=== PATIENT | female | born 1995 | race Caucasian/White ===

== ENCOUNTER 2016-04-05 14:12 | Emergency (ER) | payer OTHER ==
[2016-04-05 14:29] VITALS: BP 108/75; PULSE 80; TEMP 98; BMI 29.9
[2016-04-05 15:19] LABS: URINE APPEARANCE SLCLOUDY; URINE BILIRUBIN NEGATIVE (NEGATIVE); URINE COLOR LTYELLOW; URINE GLUCOSE (UA) NEGATIVE (NEGATIVE); URINE KETONE NEGATIVE (NEGATIVE); URINE NITRITE NEGATIVE (NEGATIVE); URINE PROTEIN NEGATIVE (NEGATIVE); URINE UROBILINOGEN NEGATIVE E.U./dl (0.2-1.0)
[2016-04-05 15:37] LABS: URINE BLOOD 1+ (NEGATIVE)
[2016-04-05 15:38] LABS: URINE LEUK ESTERASE 3+ (NEGATIVE)
--- NOTE | 2016-04-05 15:45 | PDOC ---
History of Present Illness - General Chief Complaint: Urinary Problem Stated Complaint: LOWER PELVIC PAIN/ TROUBLING URINATING Time Seen by Provider: 04/05/16 14:57 History Source: Patient Exam Limitations: No Limitations - History of Present Illness Initial Comments: 04/05/16 15:43 Chief complaint: Dysuria today with pelvic comfort History of present illness: Patient is a 20-year-old female here today complaining of dysuria that started earlier today with suprapubic discomfort. Patient denies any vaginal discharge or any frequency urgency or hematuria or back pain, fever, or vomiting. Patient reports that she be should be getting her menstrual cycle any day now ever it has been irregular since she had started to menstruate. Patient reports that she was sexually active yesterday for the very first time in a condom was used however the condom came off at the end. Patient works that it was her boyfriend's first time also. 04/05/16 16:13 04/05/16 16:21 Timing/Duration: getting worse Severity: mild Associated Symptoms: reports: other (dyuria today, suprapubic tenderness today ) . denies: fever/chills, nausea/vomiting Past History - Past Medical History Allergies/Adverse Reactions: Allergies Allergy/AdvReac Type Severity Reaction Status Date / Time No Known Allergies Allergy Verified 04/05/16 14:29 Home Medications: Ambulatory Orders No Home Medications 0 dose .ROUTE UTDICT 09/03/13 Nitrofurantoin Monohyd/M-Cryst [Macrobid -] 100 mg PO BID #13 capsule 04/05/16 Phenazopyridine HCl [Pyridium] 200 mg PO TID #5 tablet 04/05/16 Thyroid Disease: No - Immunization History Immunization Up to Date: Yes - Psycho/Social/Smoking Cessation Hx Anxiety: No Suicidal Ideation: No Smoking History: Never smoked Hx Alcohol Use: Yes (SOCIAL) Drug/Substance Use Hx: No Substance Use Type: None Review of Systems - Review of Systems Able to Perform ROS?: Yes Constitutional: No: Symptoms Reported HEENTM: No: Symptoms Reported Respiratory: No: Symptoms reported Cardiac (ROS): No: Symptoms Reported ABD/GI: No: Diarrhea, Nausea : Yes: Dysuria. No: Burning, Discharge, Frequency, Flank Pain, Hematuria, Incontinence, Pain, Urgency Musculoskeletal: No: Symptoms Reported Integumentary: No: Symptoms Reported Neurological: No: Symptoms reported *Physical Exam - Vital Signs Last Vital Signs Temp Pulse Resp BP Pulse Ox 98.0 F 80 20 108/75 99 04/05/16 14:26 04/05/16 14:26 04/05/16 14:26 04/05/16 14:26 04/05/16 14:26 - Physical Exam General Appearance: Yes: Appropriately Dressed Respiratory/Chest: positive: Lungs Clear, Normal Breath Sounds. negative: Chest Tender, Respiratory Distress Cardiovascular: positive: Regular Rhythm, Regular Rate, S1, S2 Gastrointestinal/Abdominal: positive: Normal Bowel Sounds, Soft. negative: Tender, Organomegaly, Distended, Guarding, Rebound, Tenderness, Hepatomegaly, Spleenomegaly Musculoskeletal: positive: Normal Inspection. negative: CVA Tenderness, CVA Tenderness (R), CVA Tenderness (L) Integumentary: positive: Normal Color Neurologic: positive: Alert, Normal Response, Responsive ED Treatment Course - ADDITIONAL ORDERS Additional order review: Laboratory Results 04/05/16 04/05/16 15:00 14:57 Urine Color Ltyellow Urine Appearance Slcloudy Urine pH 5.0 Ur Specific Ira 1.025 Urine Protein Negative Urine Glucose (UA) Negative Urine Ketones Negative Urine Blood 1+ H Urine Nitrite Negative Urine Bilirubin Negative Urine Urobilinogen Negative Ur Leukocyte Esterase 3+ H D Urine HCG, Qual Negative Medical Decision Making - Medical Decision Making 04/05/16 15:45 Patient is a 20-year-old female here today complaining of dysuria that started earlier today with suprapubic discomfort. Patient denies any vaginal discharge or any frequency urgency or hematuria or back pain, fever, or vomiting. Patient reports that she be should be getting her menstrual cycle any day now ever it has been irregular since she had started to menstruate. Patient reports that she was sexually active yesterday for the very first time in a condom was used however the condom came off at the end. Patient works that it was her boyfriend' s first time also. 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 04/05/16 16:13 Rule out urinary tract infection 04/05/16 16:14 Plan: Urinalysis Urine C&S Urine chlamydia and gonorrhea amplification 04/05/16 16:16 Macrobid 100 mg by mouth now then twice a day 7 days Pyridium 200 mg by mouth now then 3 times a day 2 days 04/05/16 16:17 Laboratory Tests 04/05/16 04/05/16 14:57 15:00 Urine Color Ltyellow Urine Appearance Slcloudy Urine pH 5.0 Ur Specific Ira 1.025 Urine Protein Negative Urine Glucose (UA) Negative Urine Ketones Negative Urine Blood 1+ H Urine Nitrite Negative Urine Bilirubin Negative Ur Leukocyte Esterase 3+ H D Urine HCG, Qual Negative *DC/Admit/Observation/Transfer Diagnosis at time of Disposition: Urinary tract infection Qualifiers: Urinary tract infection type: acute cystitis Hematuria presence: with hematuria Qualified Code(s): N30.01 - Acute cystitis with hematuria - Discharge Dispostion Disposition: HOME Condition at time of disposition: Stable - Prescriptions Prescriptions: Nitrofurantoin Monohyd/M-Cryst [Macrobid -] 100 mg PO BID #13 capsule Phenazopyridine HCl [Pyridium] 200 mg PO TID #5 tablet - Referrals Referrals: Arun Friend MD [Primary Care Provider] - - Patient Instructions Additional Instructions: dRINK A lot a fluids especially cranberry juice Return to emergency room if any fever, nausea, or back pain or increased pelvic pain 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
[2016-04-05] MEDS ORDERED: PHENAZOPYRIDINE HCL 100 MG TABLET (FP) PO ONE (16:18)
[2016-04-05] MEDS ORDERED: NITROFURANTOIN MACROCRYSTAL 50 MG CAPSULE (FP) ONE (16:20)
[2016-04-05] MEDS ORDERED: PHENAZOPYRIDINE HCL 100 MG TABLET (FP) ONE (16:20)
[2016-04-05] MEDS ORDERED: NITROFURANTOIN MACROCRYSTAL 50 MG CAPSULE (FP) PO SCH (16:30)
== END 2016-04-05 16:23 | disposition home or self-care (01) ==
LOC: JERFT 14:12
DX: N30.01 Acute cystitis with hematuria (principal)
CPT/HCPCS: 36415; 81003; 81015; 84703; 87086; 87491; 87591; 99281-25

== ENCOUNTER 2017-08-27 17:57 | Emergency (ER) | payer OTHER ==
[2017-08-27 18:19] VITALS: BP 122/68; PULSE 80; TEMP 97.8; BMI 31.6
--- NOTE | 2017-08-27 18:57 | PDOC ---
History of Present Illness - General Chief Complaint: Pain Stated Complaint: PAIN Time Seen by Provider: 08/27/17 18:44 - History of Present Illness Initial Comments: 19-year-old female presents for evaluation of dysuria 3 days. She has no systemic symptoms or comorbidities. 08/27/17 18:54 Past History - Past Medical History Allergies/Adverse Reactions: Allergies Allergy/AdvReac Type Severity Reaction Status Date / Time No Known Allergies Allergy Verified 08/27/17 18:15 Home Medications: Ambulatory Orders No Home Medications 0 dose .ROUTE UTDICT 09/03/13 Nitrofurantoin Monohyd/M-Cryst [Macrobid -] 100 mg PO BID #14 capsule 08/27/17 COPD: No Diabetes: Yes (PRE) Thyroid Disease: No - Immunization History Immunization Up to Date: Yes - Suicide/Smoking/Psychosocial Hx Smoking History: Never smoked Have you smoked in the past 12 months: No Information on smoking cessation initiated: No Hx Alcohol Use: No Drug/Substance Use Hx: No Substance Use Type: None Review of Systems - Review of Systems : Yes: Burning, Dysuria All Other Systems: Reviewed and Negative *Physical Exam - Vital Signs Last Vital Signs Temp Pulse Resp BP Pulse Ox 97.8 F 80 18 122/68 100 08/27/17 18:16 08/27/17 18:16 08/27/17 18:16 08/27/17 18:16 08/27/17 18:16 - Physical Exam Comments: GENERAL: The patient is awake, alert, and fully oriented, in no acute distress. HEAD: Normal with no signs of trauma. EYES: conjunctiva clear. ENT: Ears normal, nares patent NECK: Normal range of motion LUNGS: Breath sounds equal, clear to auscultation bilaterally. No wheezes, and no crackles. HEART: Regular rate and rhythm, normal S1 and S2 without murmur, rub or gallop. EXTREMITIES: Normal range of motion NEUROLOGICAL: Cranial nerves II through XII grossly intact. Normal speech, normal gait. PSYCH: Normal mood, normal affect. SKIN: Warm, Dry, normal turgor, no rashes or lesions noted. 08/27/17 18:56 *DC/Admit/Observation/Transfer Diagnosis at time of Disposition: UTI (urinary tract infection) - Discharge Dispostion Disposition: HOME Condition at time of disposition: Stable Decision to Admit order: No - Prescriptions Prescriptions: Nitrofurantoin Monohyd/M-Cryst [Macrobid -] 100 mg PO BID #14 capsule - Referrals Referrals: Марина Felix MD [Primary Care Provider] - - Patient Instructions Printed Discharge Instructions: DI for Urinary Tract Infection (UTI), Urinary Tract Infection Additional Instructions: Return to the emergency room should her symptoms worsen or go unresolved. In the meantime he should follow-up with your primary care physician in next 1-2 days for further evaluation and treatment options. - Post Discharge Activity
[2017-08-27 20:05] LABS: HCG,QUALITATIVE URINE NEGATIVE
[2017-08-27 20:11] LABS: URINE APPEARANCE CLEAR; URINE COLOR YELLOW; URINE GLUCOSE (UA) NEGATIVE (NEGATIVE); URINE KETONE NEGATIVE (NEGATIVE); URINE NITRITE NEGATIVE (NEGATIVE); URINE UROBILINOGEN NEGATIVE mg/dL (0.2-1.0)
[2017-08-27 20:18] LABS: URINE LEUK ESTERASE 1+ (NEGATIVE); URINE PROTEIN 1+ (NEGATIVE)
[2017-08-27 20:20] LABS: EPI CELLS RARE /HPF (FEW); URINE BACTERIA RARE /hpf (NONE SEEN); URINE MUCUS MANY
== END 2017-08-27 20:26 | disposition home or self-care (01) ==
LOC: JERFT 17:57
DX: N39.0 Urinary tract infection, site not specified (principal); R73.03 Prediabetes
CPT/HCPCS: 81003; 81015; 84703; 87086; 99281-25

== ENCOUNTER 2021-09-22 18:24 | Emergency (ER) | payer OTHER ==
[2021-09-22 18:35] VITALS: BP 122/77; PULSE 86; TEMP 98.3; BMI 31.6
[2021-09-22] MEDS ORDERED: KETOROLAC TROMETHAMINE 30 MG/1 ML VIAL IM ONE (18:55)
[2021-09-22] MEDS ORDERED: KETOROLAC TROMETHAMINE 30 MG/1 ML VIAL ONE (18:57)
== END 2021-09-22 19:40 | disposition home or self-care (01) ==
LOC: JERFT 18:24
PROC: 3E0233Z Introduction of Anti-inflammatory into Muscle, Percutaneous Approach (ICD-10-PCS; principal; 2021-09-22)
DX: R07.89 Other chest pain (principal); M54.9 Dorsalgia, unspecified; V89.2XXA Person injured in unspecified motor-vehicle accident, traffic, initial encounter; Y92.9 Unspecified place or not applicable
CPT/HCPCS: 71046-TC-FY; 99284-25